=== PATIENT | male | born 1950 | race Hispanic/Latino ===

== ENCOUNTER 2017-07-10 09:29 | Emergency (ER) | payer BC ==
[~2017-07-10] VITALS: Ht 190.5 cm; Wt 94.3 kg
[~2017-07-10 09:29] MED LIST: JANUVIA100 MG PO
[2017-07-10] MEDS ORDERED: METFORMIN HCL500 MG PO (09:45)
== END 2017-07-10 11:19 | disposition home or self-care (01) ==
LOC: ED 09:29
DX: S09.90XA Unspecified injury of head, initial encounter (principal); S60.221A Contusion of right hand, initial encounter; M54.5 Low back pain; W01.198A Fall on same level from slipping, tripping and stumbling with subsequent striking against other object, initial encounter; E11.9 Type 2 diabetes mellitus without complications; Z79.84 Long term (current) use of oral hypoglycemic drugs; Z79.899 Other long term (current) drug therapy
CPT/HCPCS: 70450; 72131; 73130; 99284